=== PATIENT | male | born 1995 | race Caucasian/White ===

== ENCOUNTER 2019-06-08 18:33 | Emergency (ER) | payer BC, OTHER ==
[~2019-06-08] VITALS: Ht 180.3 cm; Wt 102.1 kg
[2019-06-08 18:46] VITALS: BP 139/89
--- NOTE | 2019-06-08 19:42 | NUR ---
PT TO BED 7.
--- NOTE | 2019-06-08 19:50 | NUR ---
23 YO M BIB SELF AND MOM PRESENTS TO ED C/O 07/08 RIGHT THUMB PAIN S/P INJURY WHILE LIFTING BOXES. PT STATES HE BROKE HIS THUMB 2-3 YEARS BACK AND LET IT HEAL ON ITS OWN. HE BELIEVES HE BROKE IT AGAIN. ROM AFFECTED; UNABLE TO MOVE THUMB. WEAKNESS NOTED TO OTHER FINGERS. -- PT AWAKE, ALERT, CALM, COOPERATIVE. ANSWERING QUESTIONS APPROPRIATELY. BEHAVIOR AGE APPROPRIATE. -- SKIN PINK, DRY, WARM. BREATHING EVEN, UNLABORED. -- DEFORMITY NOTED TO THUMB. CAP REFILL LESS THAN 3 SECONDS. RADIAL PULSES STRONG, EQUAL. PMH-- DENIES
[2019-06-08] MEDS ORDERED: KETOROLAC 60 MG/2 ML VIAL IM ONE (20:15)
[2019-06-08 20:26] VITALS: BP 139/78
== END 2019-06-08 20:26 | disposition home or self-care (01) ==
LOC: MED 18:33
DX: S63.601A Unspecified sprain of right thumb, initial encounter (principal); X58.XXXA Exposure to other specified factors, initial encounter; Y93.89 Activity, other specified; Y92.89 Other specified places as the place of occurrence of the external cause; Y99.8 Other external cause status
CPT/HCPCS: 73140; 96372; 99283; J1885

== ENCOUNTER 2020-03-20 21:23 | Emergency (ER) | payer BC ==
[~2020-03-20] VITALS: Ht 180.3 cm; Wt 99.8 kg
--- NOTE | 2020-03-20 21:23 | NUR ---
[facility] TO ER BED 04
[2020-03-20 21:31] VITALS: BP 123/78
[2020-03-20] MEDS ORDERED: NACL 0.9% 1,000 ML IV ONE (21:45)
[2020-03-20] MEDS ORDERED: LORazepam 2 MG/ML VIAL IVP ONE (21:45)
--- NOTE | 2020-03-20 21:45 | NUR ---
24 Y/O MALE BROUGHT IN BY BLS WITH C/O SHARP, NEEDLE LIKE CHEST PAIN 04/07 X 4 YRS. PT STATES HE WAS AT WORK, AND BEGAN TO FEEL NEEDLE SENSATION IN CHEST, AFTER EATING "HOT CHEETOS" AND STARTED TO FEEL "GAS PASSING THROUGH CHEST". DENIES NAUSEA, VOMITING, DIARRHEA, NOT DIAPHORETIC. DENIES COUGH, SOB, R/R EQUAL AND UNLABORED. DENIES STREET/PRESCRIPTION DRUG USE ONLY MARIJUANA. DENIES HI/SI. BS 216. VSS, SIDERAIL X 1, WILL CONTINUE TO MONITOR NKDA DENIES PMH
--- NOTE | 2020-03-20 22:10 | NUR ---
STAT LABS DRAWN AND GIVEN TO ISAEL SIGNALS COLLECTOR/ANALYST.
[2020-03-20 22:20] LABS: BASOPHILS # (AUTO) 0.1 K/uL (0.00-0.22); BASOPHILS % (AUTO) 0.5 % (0.0-2.0); EOSINOPHILS % (AUTO) 0.4 % (0.0-4.0); HEMATOCRIT 41.6 % (36-52); HEMOGLOBIN 14.2 g/dL (12.0-18.0); LYMPHOCYTES # (AUTO) 1.7 K/uL (2.0-11.5); LYMPHOCYTES % (AUTO) 16.7 % (20.5-51.1); MEAN CORPUSCULAR HEMOGLOBIN 30 pg (27-31); MEAN CORPUSCULAR HGB CONC 34 g/dL (33-37); MEAN CORPUSCULAR VOLUME 86.8 fL (80-94); MONOCYTES # (AUTO) 0.8 K/uL (0.8-1.0); MONOCYTES % (AUTO) 8.1 % (1.7-9.3); NEUTROPHILS # (AUTO) 7.6 K/uL (1.8-7.7); NEUTROPHILS % (AUTO) 74.3 % (42.2-75.2); PLATELET COUNT (AUTO) 190 K/uL (140-450); RED BLOOD CELL COUNT(AUTO) 4.79 MIL/uL (4.20-6.10); RED CELL DISTRIBUTION WIDTH 12.8 % (11.6-13.7); WHITE BLOOD COUNT (AUTO) 10.2 K/uL (4.8-10.8)
[2020-03-20 22:39] LABS: ALBUMIN 3.8 g/dL (3.4-5.0); ANION GAP 12.7 (8-16); CARBON DIOXIDE 25.6 mmol/L (21-32); CREATININE 1.1 mg/dL (0.6-1.3); POTASSIUM 3.3 mmol/L (3.5-5.1); TOTAL BILIRUBIN 0.3 mg/dL (0.0-1.0)
[2020-03-20] MEDS ORDERED: PANTOPRAZOLE 40 MG INJ VIAL IVP ONE (22:45)
[2020-03-20 23:33] VITALS: BP 116/73
--- NOTE | 2020-03-20 23:34 | NUR ---
Patient discharged with v/s stable. Written and verbal after care instructions given and explained. Patient alert, oriented and verbalized understanding of instructions. Ambulatory with steady gait. All questions addressed prior to discharge. ID band removed. Patient advised to follow up with PMD. Rx Motrin 800 mg po TID and Xanax 0.5 mg po TID given. Patient educated on indication of medication including possible reaction and side effects. Opportunity to ask questions provided and answered. Pt h/l d/c and pt talk in full sentences and d/c.
== END 2020-03-20 23:34 | disposition home or self-care (01) ==
LOC: MED 21:23
DX: F41.9 Anxiety disorder, unspecified (principal); K21.9 Gastro-esophageal reflux disease without esophagitis; F12.90 Cannabis use, unspecified, uncomplicated
CPT/HCPCS: 36415; 71045; 80053; 84484; 85025; 93005; 96374; 96375; 99285; C9113; J2060; J7030; Q0092; 99284

== ENCOUNTER 2020-04-08 20:09 | Emergency (ER) | payer BC ==
[~2020-04-08] VITALS: Ht 180.3 cm; Wt 99.8 kg
[2020-04-08 20:13] VITALS: BP 149/88
--- NOTE | 2020-04-08 20:21 | NUR ---
PT TAKEN TO BED 6
[2020-04-08] MEDS ORDERED: KETOROLAC 30 MG/ML VIAL IVP ONE (20:30)
--- NOTE | 2020-04-08 20:40 | NUR ---
24 Y/O MALE PRESENTS WITH ATYPICAL CHEST PAIN THAT HAS BEEN ON/OFF SINCE 03/18/20 AND HAS GOTTEN SEVERE SINCE THIS MORNING. PATIENT DESCRIBES PAIN "PRESSURE" AND "PULSING" ON THE LEFT SIDE OF CHEST, NON RADIATING/ 08/08 PAIN. PT STATES HE WAS AT WORK WHEN PAIN BEGAN. RESP EVEN AND UNLABORED. LUNG SOUNDS CLEAR IN BILAT LOBES. PT DENIES ANY FEVER/CHILLS/N/V/D. SKIN IS COOL/DRY. SINUS AMADEO ON MONITOR. AAOX4. PT STATES HE FEELS WEAK AND IS UNABLE TO AMBULATE INDEPENDENTLY . NO PMH NKA
--- NOTE | 2020-04-08 20:44 | NUR ---
XRAY AT BEDSIDE
[2020-04-08 21:04] LABS: BASOPHILS % (AUTO) 0.2 % (0.0-2.0); EOSINOPHILS # (AUTO) 0.1 K/uL (0-0.4); EOSINOPHILS % (AUTO) 1.1 % (0.0-4.0); HEMATOCRIT 44.8 % (36-52); HEMOGLOBIN 15.1 g/dL (12.0-18.0); LYMPHOCYTES # (AUTO) 2.9 K/uL (2.0-11.5); LYMPHOCYTES % (AUTO) 32.2 % (20.5-51.1); MEAN CORPUSCULAR HEMOGLOBIN 30 pg (27-31); MEAN CORPUSCULAR HGB CONC 34 g/dL (33-37); MEAN CORPUSCULAR VOLUME 88.1 fL (80-94); MONOCYTES # (AUTO) 0.6 K/uL (0.8-1.0); MONOCYTES % (AUTO) 6.6 % (1.7-9.3); NEUTROPHILS # (AUTO) 5.4 K/uL (1.8-7.7); NEUTROPHILS % (AUTO) 59.9 % (42.2-75.2); PLATELET COUNT (AUTO) 215 K/uL (140-450); RED BLOOD CELL COUNT(AUTO) 5.09 MIL/uL (4.20-6.10); RED CELL DISTRIBUTION WIDTH 12.9 % (11.6-13.7)
[2020-04-08 21:15] LABS: BARBITURATE, URINE NEGATIVE ng/ml (NEG <=200); BENZODIAZEPINE, URINE POSITIVE ng/mL (NEG <=200); CANNABINOID, URINE POSITIVE ng/mL (NEG <=50); COCAINE, URINE NEGATIVE ng/mL (NEG <=300); OPIATE, URINE NEGATIVE ng/mL (NEG <=2000); PHENCYCLIDINE SCREEN,URINE NEGATIVE ng/mL (NEG <=25)
[2020-04-08 21:19] LABS: ALBUMIN 4.4 g/dL (3.4-5.0); ANION GAP 14.8 (8-16); CARBON DIOXIDE 24.8 mmol/L (21-32); CREATININE 1.1 mg/dL (0.6-1.3); POTASSIUM 3.6 mmol/L (3.5-5.1); TOTAL BILIRUBIN 0.6 mg/dL (0.0-1.0)
[2020-04-08 21:37] LABS: D-DIMER < 100 ng/ml (0-400)
[2020-04-08 23:16] VITALS: BP 132/77
--- NOTE | 2020-04-08 23:17 | NUR ---
Patient discharged with v/s stable. Written and verbal after care instructions given and explained. Patient verbalized understanding. Ambulatory with steady gait. All questions addressed prior to discharge. Advised to follow up with PMD.
== END 2020-04-08 23:17 | disposition home or self-care (01) ==
LOC: MED 20:09
DX: R07.9 Chest pain, unspecified (principal); R00.1 Bradycardia, unspecified
CPT/HCPCS: 36415; 71045; 80053; 80305; 83735; 83880; 84484; 85025; 85379; 85610; 85730; 93005; 96374; 99285; G0482; J1885

== ENCOUNTER 2020-09-28 11:26 | Emergency (ER) | payer BC, OTHER ==
[~2020-09-28] VITALS: Ht 180.3 cm; Wt 99.8 kg
[2020-09-28 11:27] VITALS: BP 150/97
--- NOTE | 2020-09-28 11:39 | NUR ---
Dr. Baeza evaluating pt at bedside.
--- NOTE | 2020-09-28 11:50 | NUR ---
dish technician at bedside
--- NOTE | 2020-09-28 12:36 | NUR ---
Pt seen and d/c by Dr. Baeza. No nursing care given.
[2020-09-28 12:38] VITALS: BP 138/84
== END 2020-09-28 12:36 | disposition home or self-care (01) ==
LOC: MED 11:26
DX: S61.012A Laceration without foreign body of left thumb without damage to nail, initial encounter (principal); X58.XXXA Exposure to other specified factors, initial encounter; Y93.89 Activity, other specified; Y92.89 Other specified places as the place of occurrence of the external cause; Y99.8 Other external cause status
CPT/HCPCS: 12001; 73140; 99283

== ENCOUNTER 2021-12-03 18:27 | Emergency (ER) | payer SELFPAY ==
--- NOTE | 2021-12-03 18:46 | NUR ---
CALLED TO TRIAGE NO ANSWER
--- NOTE | 2021-12-03 20:05 | NUR ---
CALLED TO TRIAGE NO ANSWER.
== END 2021-12-03 20:05 | disposition left against medical advice (07) ==
LOC: MED 18:27
DX: M79.643 Pain in unspecified hand (principal); Z53.21 Procedure and treatment not carried out due to patient leaving prior to being seen by health care provider